=== PATIENT | female | born 1930 | race African-American/Black ===

== ENCOUNTER 2018-02-19 18:47 | Observation (INO) ==
--- NOTE | 2018-02-19 18:54 | Emergency Department Note ---
START Narrative - START START: 87 year old female presents to the ED via EMS for altered mental status. Patient is currently alert now. I will order an EKg and this patient will be seen by night team (Franc/Brennon).
[2018-02-19] MEDS ORDERED: Ondansetron 4 MG/2 ML VIAL IVP ONE (19:24)
--- NOTE | 2018-02-19 19:31 | Emergency Department Note ---
Disposition Clinical Impression: Pneumonia, Weakness Disposition: Admitted As Inpatient Condition: Fair Time of Disposition: 22:00 General Adult HPI - General Chief complaint: ED Altered Mental Status Stated complaint: generalized weakness Time Seen by Provider: 02/19/18 18:52 Source: patient, family, EMS Mode of arrival: EMS Limitations: no limitations Nursing Notes Reviewed: Yes Vital Signs Reviewed: Yes - History of Present Illness HPI Narrative: Patient is an 87-year-old female with a past medical history of dementia, hypertension, hyperlipidemia, and fibromyalgia presents to the emergency Department by squad for evaluation of drowsiness. Patient was at home with her son. Son states that the patient typically sleeps most the time throughout the day on the couch. States that she developed a nonproductive cough earlier today and is concerned so they called her PCP in which they recommended Robitussin. He states that when he gave the patient Robitussin she seemed to be more drowsy than usual must talkative. States this concerned him so he brought her in for evaluation. The patient states that she mainly feels nauseous and generally weak otherwise denies any other complaints such as headache, numbness, tingling, focal weakness, chest pain, shortness of breath, abdominal pain, diarrhea, dysuria, rash or lower extremity pain or swelling. She did have one episode of nausea and vomiting that occurred after taking the [id number] Robitussin. Nonbloody nonbilious. Pain Scale: 0 - Related Data Home Medications Medication Instructions Recorded Confirmed Atorvastatin [Lipitor] 40 mg PO HS 09/20/15 09/20/15 Donepezil [Aricept] 10 mg PO HS 09/20/15 09/20/15 Losartan/HCTZ [Hyzaar 50-12.5 1 each PO DAILY 09/20/15 09/20/15 Tablet] Magnesium Oxide [Mgo] 400 mg PO DAILY 09/20/15 09/20/15 RX: Folic Acid 1 mg PO DAILY 09/20/15 09/20/15 RX: Methotrexate [Otrexup] 7.5 mg PO QWEEK 09/20/15 09/20/15 Previous Rx's Medication Instructions Recorded Albuterol Sulfate [Albuterol 1 puff IH Q4HR #1 inhaler 03/27/16 Inhaler] Benzonatate [Tessalon] 100 mg PO TID #20 capsule 03/27/16 RX: Azithromycin [Zithromax] 250 mg PO Q24H #6 tablet 03/27/16 HYDROcodone/Acet 5/325 mg [[place] 1 tab PO Q6H PRN #10 tab 06/11/16 5-325 mg] HYDROcodone/Acet 5/325 mg [[place] 0.5 - 1 tab PO Q6H PRN 2 Days #6 10/08/17 5-325 mg] tab RX: predniSONE [PredniSONE] 40 mg PO DAILY 10 Days #4 tablet 10/08/17 Allergies Allergy/AdvReac Type Severity Reaction Status Date / Time No Known Allergies Allergy Verified 06/11/16 11:20 All systems ED: reviewed and negative except as stated. Review of Systems: As Per [facility] Past Medical History - Past Medical History Attestation: Yes The following information was validated with the patient. Medical history: Reports: arthritis, dementia, fibromyalgia, hyperlipidemia, hypertension Psychiatric history: Reports: no psych history FAMILY PRACTICE DOCTOR history: Reports: no FAMILY PRACTICE DOCTOR history - Social History Smoking Status: Former smoker Smokeless Tobacco Status: No Alcohol use: Reports: none Drug use: Reports: none Physical Exam - General Limitations: no limitations General appearance: alert, in no apparent distress - Head Head exam: atraumatic, normocephalic, normal inspection - Eye Eye exam: Present: normal appearance, PERRL, EOMI, miosis - ENT ENT exam: normal exam, mucous membranes moist, TM's normal bilaterally - Neck Neck exam: Present: normal inspection, full ROM, trachea midline. Absent: tenderness - Chest Chest inspection: Present: normal inspection, symmetric chest wall rise. Absent: tenderness - Respiratory Respiratory exam: Present: normal lung sounds bilaterally. Absent: respiratory distress, wheezes - Cardiovascular Cardiovascular exam: Present: regular rate, normal rhythm, normal heart sounds, +S1, +S2 - Abdominal Exam Abdominal exam: Present: soft, Non-Tender, normal bowel sounds - Extremities Exam Extremities exam: Present: normal inspection, full ROM, normal capillary refill. Absent: tenderness, pedal edema - Back Exam Back exam: Present: normal inspection, full ROM. Absent: tenderness, CVA tenderness (R), CVA tenderness (L) - Neurological Exam Neurological exam: Present: alert, oriented X3, CN II-XII intact. Absent: motor sensory deficit - Expanded Neurological Exam Patient oriented to: Present: person, place, time Speech: Present: fluid speech Cranial nerves: EOM function (II, III, IV, ): Normal, facial sensation (V): Normal, facial palsy (VII): Normal, gag reflex (IX): Normal, spinal accessory function (XI): Normal, tongue deviation (XII): Normal Cerebellar function: finger to nose: Normal, heel to goodwin: Normal Motor strength - LUE: 5/5 Motor strength - RUE: 5/5 Motor strength - LLE: 5/5 Motor strength - RLE: 5/5 Sensory exam upper extremity: light touch: Normal Sensory exam lower extremity: light touch: Normal Coma Scale Eye Opening: Spontaneous Coma Scale Motor Response: Obeys Commands Coma Scale Verbal Response: Oriented Coma Scale Total: 15 - Psychiatric Psychiatric exam: Present: normal affect, normal mood - Skin Skin exam: Present: warm, dry, intact Course Course Narrative: Patient's EKG does show new changes which include T-wave inversions in lead III and aVF. Given this change in the setting of weakness plan is times throughout the cardiac ideology as well as an infectious source for the patient's overall weakness. Patient does have miosis on exam and is laying in bed with her eyes clothes. Possible medication reaction from codeine. This may be medication side effect. Patient will receive a dose of Zofran for nausea. Otherwise she is in no acute distress at this time she will be updated with results we will discuss disposition upon return of lab work and imaging. - Reevaluation(s) Reevaluation #1: Discussed the patient's case with the hospitalist on-call, Dr. Vallecillo, he agrees to accept the patient for pneumonia. Discussed this findings with the patient which included chest x-ray showing a right lower lobe infiltrate in the setting of her cough and weakness patient was started on community-acquired coverage with ceftriaxone and azithromycin. She is admitted to the hospitalist for further evaluation and treatment. Patient agrees with this plan. Time: 22:00 Vital Signs Temperature 99.1 F 02/19/18 18:56 Pulse Rate 67 02/19/18 18:56 Respiratory Rate 19 18 18:56 Blood Pressure 182/55 18 18:56 O2 Sat by Pulse Oximetry 97 02/19/18 18:56 Temperature 99.1 F 02/19/18 18:56 Pulse Rate 72 02/19/18 21:00 Respiratory Rate 17 02/19/18 21:00 Blood Pressure 110/93 02/19/18 21:00 O2 Sat by Pulse Oximetry 97 02/19/18 21:00 Oxygen Delivery Oxygen Delivery Room Air Medical Decision Making - Medical Records Medical records reviewed: Yes I reviewed the patient's medical records. - Lab Data Lab results reviewed: Yes I reviewed the patient's lab results. Result diagrams: 02/19/18 19:52 02/19/18 19:52 Lab Results 02/19/18 02/19/18 02/19/18 Range/Units 19:52 19:52 20:10 WBC 8.9 (4.3-11.1) K/mcL RBC 3.50 L (3.82-4.97) M/mcL Hgb 10.9 L (11.5-15.4) g/dL Hct 31.8 L (35.3-44.9) % MCV 90.9 (83.0-100.0) fL MCH 31.1 (28.0-33.3) pg MCHC 34.3 (31.6-35.5) g/dL RDW 14.0 (11.5-14.5) % Plt Count 168 (140-400) K/mcL MPV 11.7 (9.4-12.4) fL Immature Gran % 0.1 (0-4) % Seg Neutrophils % 75.8 % Lymphocytes % 10.6 % Monocytes % 12.5 % Eosinophils % 0.6 % Basophils % 0.4 % Neutrophils # 6.8 (1.6-8.9) K/mcL Lymphocytes # 1.0 (0.6-4.6) K/mcL Monocytes # 1.1 (0.0-1.3) K/mcL Eosinophils # 0.1 (0.0-0.6) K/mcL Basophils # 0.0 (0.0-0.2) K/mcL Sodium 138 (136-145) mEq/L Potassium 4.1 (3.5-5.1) mEq/L Chloride 104 (98-107) mEq/L Carbon Dioxide 25 (23-29) mEq/L BUN 21 (8-23) mg/dL Creatinine 1.23 H (0.60-1.20) mg/dL Est GFR ( Amer) 50 L (> 60) Est GFR (Non-Af Amer) 41 L (> 60) BUN/Creatinine Ratio 17 (6-26) Glucose 148 H (70-105) mg/dL Calculated Osmolality 292 (280-300) Calcium 8.6 (8.6-10.3) mg/dL Total Bilirubin 0.4 (0.3-1.0) mg/dL AST 21 (13-39) Units/L ALT 15 (7-52) Units/L Alkaline Phosphatase 80 (34-104) Units/L Troponin I < 0.03 (< 0.04) ng/mL Serum Total Protein 6.1 L (6.4-8.9) g/dL Albumin 3.4 L (3.5-5.7) g/dL Globulin 2.7 (2.4-3.5) g/dL Albumin/Globulin Ratio 1.3 (1.1-2.2) TSH 2.588 (0.340-5.600) mcIU/mL Urine Color Yellow (Yellow) Urine Clarity Cloudy A (Clear) Urine pH 6.0 (5.0-8.0) pH Units Ur Specific [place] 1.009 L (1.010-1.025) Urine Protein Negative (Neg-Trace) mg/dL Urine Glucose (UA) Normal (Normal) mg/dL Urine Ketones Negative (Negative) mg/dL Urine Blood Negative (Negative) Urine Nitrite Negative (Negative) Urine Bilirubin Negative (Negative) Urine Urobilinogen Normal (Normal) mg/dL Ur Leukocyte Esterase Moderate H (Negative) Urine Microscopic RBC 0-3 (0-3) per hpf Urine Microscopic WBC 15-30 H (0-3) per hpf Ur Squamous Epith Cells Many H (None-Few) per lpf Urine Bacteria Moderate H (None-Few) per hpf Hyaline Casts None Seen (None-Few) per lpf Urine Yeast Few H (None Seen) per hpf Ur Culture Indicated? NO. A (NO) - Radiology Data Radiology results reviewed: Yes I reviewed the patient's radiology results. Chest X-Ray 02/19/18 19:24 IMPRESSION: Mild infiltrate at the right lung base superimposed on chronic changes in the right middle lobe. D/ / Chastity Marcos MD / Chastity Marcos MD Interpreting Provider: Chastity Marcos MD - EKG Data EKG #1 EKG attestation: Yes I reviewed and interpreted this EKG. EKG results narrative: EKG done at 19:04 shows sinus rhythm at a rate of 67 bpm. Normal axis. Intervals within normal limits. New T-wave inversions in lead III and aVF. Isolated PVC. Otherwise unchanged from EKG done on September 192015. Attestation Statement - Attestation Attestation: Dr. Bruner note: Patient seen in conjunction with resident Dr. Willett. Please see his charting for complete documentation. I spent [id number] time with the patient and I agree with patient's treatment in this position. Patient has been more weak and fatigued and less responsive over the last couple days. No hypoxia or tachypnea. Right-sided pneumonia noted. Antibiotics indicated. Patient based on her presentation and age and comorbidities would not likely be successful : Outpatient management. X-ray results noted. Blood work reviewed. Admitted and stabilized improved condition.
[2018-02-19 20:04] LABS: Basophils % 0.4 %; Eosinophils # 0.1 K/mcL (0.0-0.6); Eosinophils % 0.6 %; Hematocrit 31.8 % (35.3-44.9); Hemoglobin 10.9 g/dL (11.5-15.4); Immature Granulocytes % 0.1 % (0-4); Lymphocytes % 10.6 %; Mean Corpuscular HGB Conc 34.3 g/dL (31.6-35.5); Mean Corpuscular Hemoglobin 31.1 pg (28.0-33.3); Mean Corpuscular Volume 90.9 fL (83.0-100.0); Mean Platelet Volume 11.7 fL (9.4-12.4); Monocytes # 1.1 K/mcL (0.0-1.3); Monocytes % 12.5 %; Neutrophils # 6.8 K/mcL (1.6-8.9); Platelet Count 168 K/mcL (140-400); Segmented Neutrophils % 75.8 %
[2018-02-19 20:24] LABS: Alanine Aminotransferase 15 Units/L (7-52); Albumin 3.4 g/dL (3.5-5.7); Albumin/Globulin Ratio 1.3 (1.1-2.2); Alkaline Phosphatase 80 Units/L (34-104); Aspartate Amino Transferase 21 Units/L (13-39); BUN/Creatinine Ratio 17 (6-26); Bilirubin,Total 0.4 mg/dL (0.3-1.0); Blood Urea Nitrogen 21 mg/dL (8-23); Calcium 8.6 mg/dL (8.6-10.3); Carbon Dioxide 25 mEq/L (23-29); Chloride 104 mEq/L (98-107); Globulin 2.7 g/dL (2.4-3.5); Glucose 148 mg/dL (70-105); Osmolality,Calculated 292 (280-300); Potassium 4.1 mEq/L (3.5-5.1); Sodium 138 mEq/L (136-145); Total Protein 6.1 g/dL (6.4-8.9); Troponin I < 0.03 ng/mL (< 0.04); eGFR For Non-African Americans 41 (> 60)
[2018-02-19 20:36] LABS: Bilirubin,Urine Negative (Negative); Blood,Urine Negative (Negative); Clarity,Urine Cloudy (Clear); Color,Urine Yellow (Yellow); Glucose,Urine (UA) Normal (Normal); Ketones,Urine Negative (Negative); Leukocyte Esterase,Urine Moderate (Negative); Nitrite,Urine Negative (Negative); Protein,Urine Negative (Neg-Trace); Specific Gravity,Urine 1.009 (1.010-1.025); Urobilinogen,Urine Normal (Normal)
[2018-02-19 20:38] LABS: Thyroid Stimulating Hormone 2.588 mcIU/mL (0.340-5.600)
[2018-02-19 20:38] LABS: Bacteria,Urine Moderate per hpf (None-Few); Hyaline Casts,Urine None Seen per lpf (None-Few); Squamous Epithelial Cell,Urine Many per lpf (None-Few); WBC,Urine 15-30 per hpf (0-3)
[2018-02-19 21:04] LABS: RBC,Urine 0-3 per hpf (0-3)
[2018-02-19 21:05] LABS: Yeast,Urine Few per hpf (None Seen)
[2018-02-19] MEDS ORDERED: Azithromycin 500 MG in D5% in Water 250 ML IVPB ONE ×2 (21:13→23:00)
[2018-02-19] MEDS: cefTRIAXone 1,000 MG in Water for inj. (sterile) 20 ML 10 ML IVP SCH (22:32)
[2018-02-20] MEDS ORDERED: Ringers Solution, Lactated 1,000 ML IVC SCH (01:00)
--- NOTE | 2018-02-20 01:00 | Internal Med History&Physical ---
Date of Encounter: 02/20/18 Time of Encounter: 00:55 Internal Medicine - H&P: HPI Chief complaint: Weakness Admitted From: Home Plans for Post Hospital Care: Home History of present illness: Yari Batista is an 87-year-old woman with dementia, hypertension and rheumatoid arthritis (presumed based on her records showing folic acid, prednisone and methotrexate) who lives with her son at home brought in due to weakness and fatigue. It is reported that the patient typically sleeps most of the time throughout the day on the couch as her norm. She developed nonproductive cough earlier and was recommended Robitussin by their PCP. After she took it she became more drowsy than usual and this concerned him so he brought her in for evaluation. In the ER she reported feeling nauseated and generally weak but otherwise had no complaints. Lab work was grossly unrevealing. Chest x-ray done gave him concern for pneumonia and was given ceftriaxone and azithromycin however on my review she has a persistent chronic right base opacity which seems to stem from underlying granulomatous disease and is not a new infiltrate. On my assessment she is unable to tell me why she is here, notably confused and searching for a reason. She response every other question appropriately however. She denies headache, chest pain, difficulty breathing, abdominal pain, nausea, vomiting and diarrhea. Past Med Surg Social Fam HX - Past Medical History Medical history: arthritis, dementia, fibromyalgia, hyperlipidemia, hypertension Additional medical history: poor historian Psychiatric history: no psych history - Past Surgical History Additional surgical history: back surgery. J LUIS CARPAL TUNNEL - Social History Smoking Status: Former smoker Smokeless Tobacco Status: No Alcohol use: none Drug use: none Internal Medicine - H&P: Meds Atorvastatin [Lipitor] 40 mg PO HS 09/20/15 [History] Donepezil [Aricept] 10 mg PO HS 09/20/15 [History] Folic Acid 1 mg PO DAILY 09/20/15 [History] Losartan/HCTZ [Hyzaar 50-12.5 Tablet] 1 each PO DAILY 09/20/15 [History] Magnesium Oxide [Mgo] 400 mg PO DAILY 09/20/15 [History] Methotrexate [Otrexup] 7.5 mg PO QWEEK 09/20/15 [History] Albuterol Sulfate [Albuterol Inhaler] 1 puff IH Q4HR #1 inhaler 03/27/16 [Rx] Azithromycin [Zithromax] 250 mg PO Q24H #6 tablet 03/27/16 [Rx] Benzonatate [Tessalon] 100 mg PO TID #20 capsule 03/27/16 [Rx] HYDROcodone/Acet 5/325 mg [[place] 5-325 mg] 1 tab PO Q6H PRN #10 tab 06/11/16 [Rx] HYDROcodone/Acet 5/325 mg [[place] 5-325 mg] 0.5 - 1 tab PO Q6H PRN 2 Days #6 tab 10/08/17 [Rx] predniSONE [PredniSONE] 40 mg PO DAILY 10 Days #4 tablet 10/08/17 [Rx] Allergy/AdvReac Type Severity Reaction Status Date / Time No Known Allergies Allergy Verified 06/11/16 11:20 All Systems PM: A 10-system review of systems was performed and is negative for pertinent find ings except as documented above in the HPI. Family History reviewed and noncontributory. - Constitutional Vitals: Temp Pulse Resp BP Pulse Ox 99.3 F 72 15 157/73 96 02/19/18 23:13 02/19/18 23:13 02/19/18 23:13 02/19/18 23:13 02/19/18 23:13 Exam: Vitals: Reviewed General: Well-developed and well-appearing elderly female lying comfortably in bed in no acute distress. Skin: Warm and supple. HEENT: Moist mucous membranes. No conjunctivae pallor. Neck: No lymphadenopathy. No JVD. No carotid bruits. No palpable thyroid. Chest: Normal thoracic expansion. Normal breath sounds. Clear to auscultation. Heart: Normal S1 & S2; rhythmic. No rubs or murmurs. Abdomen: Non-distended, soft and non-tender to palpation. No peritoneal reaction. Extremities: No clubbing, cyanosis or edema. No calf tenderness. Normal distal pulses. Neurological: Awake, alert and oriented to person, place and time. No focal deficits. Psych: Affect appropriate. Internal Med - H&P Results - Labs CBC & Chem 7: 02/19/18 19:52 02/19/18 19:52 Labs: Short CBC 02/19/18 Range/Units 19:52 WBC 8.9 (4.3-11.1) K/mcL Hgb 10.9 L (11.5-15.4) g/dL Hct 31.8 L (35.3-44.9) % Plt Count 168 (140-400) K/mcL Neutrophils # 6.8 (1.6-8.9) K/mcL BMP 02/19/18 19:52 Sodium 138 Potassium 4.1 Chloride 104 Carbon Dioxide 25 BUN 21 Creatinine 1.23 H Glucose 148 H Calcium 8.6 Cardiac Enzymes 02/19/18 Range/Units 19:52 Troponin I < 0.03 (< 0.04) ng/mL Liver Function 02/19/18 Range/Units 19:52 Total Bilirubin 0.4 (0.3-1.0) mg/dL AST 21 (13-39) Units/L ALT 15 (7-52) Units/L Alkaline Phosphatase 80 (34-104) Units/L Albumin 3.4 L (3.5-5.7) g/dL Urine 02/19/18 Range/Units 20:10 Urine Color Yellow (Yellow) Urine Clarity Cloudy A (Clear) Urine pH 6.0 (5.0-8.0) pH Units Ur Specific [place] 1.009 L (1.010-1.025) Urine Protein Negative (Neg-Trace) mg/dL Urine Glucose (UA) Normal (Normal) mg/dL - Impressions ITS Impressions Chest X-Ray 02/19/18 19:24 IMPRESSION: Mild infiltrate at the right lung base superimposed on chronic changes in the right middle lobe. D/ / Chastity Marcos MD / Chastity Marcos MD Interpreting Provider: Chastity Marcos MD - Assessment and plan (1) Weakness Current Visit: Yes Status: Acute Assessment and plan: The patient's drowsiness and increased fatigue may be attributable to taking Robitussin which can be sedating. At this time there is no clinical or microbiologic sign of UTI, clinically has no respiratory symptoms or radiologic findings concerning for pneumonia or systemic signs of illness. Will not continue the antimicrobials started in the ER. Her lab work is grossly unremarkable. Will place her on fluids for maintenance and observe her overnight to ensure stability and normalcy of her mental status. (2) HTN (hypertension) Current Visit: Yes Status: Acute Assessment and plan: Well controlled. Will resume home oral agents. Qualifiers: Hypertension type: essential hypertension Qualified Code(s): I10 - Essential (primary) hypertension (3) DVT prophylaxis Current Visit: Yes Status: Acute Assessment and plan: SubQ heparin - Time Spent With Patient Total time spent is greater than 50% in coordination of care (as documented) at patient's floor/unit and/or counseling patient: Greater than 35 minutes
[2018-02-20 05:09] LABS: % Iron Saturation 8 % (15-50); Iron 22 mcg/dL (50-170); Transferrin 185 mg/dL (203-362)
[2018-02-20] MEDS: *HR* Heparin 5,000 UNIT/ML VIAL SQ SCH ×2 (05:09→16:51)
--- NOTE | 2018-02-20 09:07 | Electrocardiograph Report ---
[place] [facility] Test Date: 2018-02-19 Pat Name: Yari Batista Department: [id number] Room: 2A43 Gender: F Welder 2[address] Shift: : 1930 Requested By: Amber Fernandez Order Number: [id number] Reading MD: Regine Castañeda Measurements Intervals [place] Rate: 67 P: 30 ME: 191 QRS: 32 QRSD: 85 T: -30 QT: 410 QTc: 433 Interpretive Statements Sinus rhythm Ventricular premature complex Left ventricular hypertrophy Borderline T abnormalities, diffuse leads Electronically Signed On 02-20-2018 9:06:05 EST by Regine Castañeda
[2018-02-20] MEDS: Folic Acid 1 MG TABLET PO SCH (09:42)
[2018-02-20] MEDS: Magnesium Oxide 400 MG TABLET PO SCH (09:42)
[2018-02-20] MEDS: Losartan/HCTZ 50-12.5 TABLET PO SCH (09:42)
[2018-02-20] MEDS ORDERED: Azithromycin 250 MG TABLET PO SCH (17:00)
--- NOTE | 2018-02-20 18:54 | Event Note ---
Date of Encounter: 02/20/18 Time of Encounter: 11:00 Patient evaluated by nocturnalist earlier this morning and also by myself. Patient presents with generalized weakness found to have right middle lobe pneumonia. Will continue IV azithromycin and IV ceftriaxone for Commit acquired pneumonia.
[2018-02-20] MEDS: cefTRIAXone 1,000 MG in Water for inj. (sterile) 20 ML 10 ML IVP SCH (20:04)
[2018-02-21] MEDS: *HR* Heparin 5,000 UNIT/ML VIAL SQ SCH (05:07)
[2018-02-21] MEDS: Folic Acid 1 MG TABLET PO SCH (08:34)
[2018-02-21] MEDS: Magnesium Oxide 400 MG TABLET PO SCH (08:34)
[2018-02-21] MEDS: Losartan/HCTZ 50-12.5 TABLET PO SCH (08:34)
--- NOTE | 2018-02-21 09:22 | Internal Med Progress Note ---
Hospitalist Progress Note - Encounter Date of Encounter: 02/21/18 - Subjective Interval History: Patient presented with generalized weakness and fatigue found to have concerns for right middle lobe pneumonia on imaging. - Exam Vitals: Temp Pulse Resp BP Pulse Ox 99.4 F 62 18 134/73 95 02/21/18 06:50 02/21/18 06:50 02/21/18 06:50 02/21/18 06:50 02/21/18 08:45 - Assessment and Plan (1) Pneumonia Current Visit: Yes Status: Acute Assessment and Plan: Imaging with suspicion for right middle lobe infiltrate Respiratory panel pending Continue day 3 of IV azithromycin and IV ceftriaxone (2) Weakness Current Visit: Yes Status: Acute Assessment and Plan: Suspect secondary to kidney acquired pneumonia Management as above Will consult PT/OT for evaluation and appreciate recommendations (3) HTN (hypertension) Current Visit: Yes Status: Acute Assessment and Plan: Continue home dose of losartan/hydrochlorothiazide (4) HLD (hyperlipidemia) Current Visit: Yes Status: Acute Assessment and Plan: Continue statin (5) Dementia Current Visit: Yes Status: Acute Assessment and Plan: Continue home dose of Aricept DVT Prophylaxis: Heparin subcutaneous - Time Spent with Patient Total time spent is greater than 50% in coordination of care (as documented) at patient's floor/unit and/or counseling patient: Internal Medicine: Result - Labs CBC & Chem 7: 02/19/18 19:52 02/19/18 19:52 Consult Discharge Plan - Plan Referrals: Jesus Merrill DO [Primary Care Provider] - (1) Pneumonia Qualifiers: Pneumonia type: due to unspecified organism Laterality: right Lung location: lower lobe of lung Qualified Code(s): J18.1 - Lobar pneumonia, unspecified organism (3) HTN (hypertension) Qualifiers: Hypertension type: essential hypertension Qualified Code(s): I10 - Essential (primary) hypertension (4) HLD (hyperlipidemia) Qualifiers: Hyperlipidemia type: unspecified Qualified Code(s): E78.5 - Hyperlipidemia, unspecified (5) Dementia Qualifiers: Qualified Code(s): F03.90 - Unspecified dementia without behavioral disturbance
[2018-02-21 10:19] LABS: Basophils # 0.1 K/mcL (0.0-0.2); Basophils % 0.7 %; Eosinophils # 0.2 K/mcL (0.0-0.6); Eosinophils % 2.3 %; Hematocrit 32.3 % (35.3-44.9); Hemoglobin 10.6 g/dL (11.5-15.4); Immature Granulocytes % 0.3 % (0-4); Lymphocytes # 1.9 K/mcL (0.6-4.6); Lymphocytes % 25.1 %; Mean Corpuscular HGB Conc 32.8 g/dL (31.6-35.5); Mean Corpuscular Hemoglobin 30.6 pg (28.0-33.3); Mean Corpuscular Volume 93.4 fL (83.0-100.0); Mean Platelet Volume 11.8 fL (9.4-12.4); Neutrophils # 4.3 K/mcL (1.6-8.9); Platelet Count 164 K/mcL (140-400); Red Blood Count 3.46 M/mcL (3.82-4.97); Red Cell Distribution Width 14.2 % (11.5-14.5); Segmented Neutrophils % 57.6 %
[2018-02-21 10:28] LABS: Calcium 8.8 mg/dL (8.6-10.3); Potassium 3.7 mEq/L (3.5-5.1)
[2018-02-21 10:35] LABS: Adenovirus Not Detected (Not Detect); Bordetella Pertussis Not Detected (Not Detect); Chlamydophila pneumoniae Not Detected (Not Detect); Coronavirus 229E Not Detected (Not Detect); Coronavirus HKU1 Not Detected (Not Detect); Coronavirus NL63 Not Detected (Not Detect); Coronavirus OC43 Not Detected (Not Detect); Human Metapneumovirus Not Detected (Not Detect); Human Rhinovirus/Enterovirus DETECTED (Not Detect); Influenza A Subtype 2009 H1 Not Detected (Not Detect); Influenza A Untypeable Not Detected (Not Detect); Influenza B Not Detected (Not Detect); Mycoplasma pneumoniae Not Detected (Not Detect); Parainfluenza Virus 1 Not Detected (Not Detect); Parainfluenza Virus 2 Not Detected (Not Detect); Parainfluenza Virus 3 Not Detected (Not Detect); Parainfluenza Virus 4 Not Detected (Not Detect); Respiratory Syncytial Virus Not Detected (Not Detect)
[2018-02-21 10:51] VITALS: BP 151/71
[2018-02-21] MEDS ORDERED: Cefdinir 300 MG CAPSULE PO SCH (12:30)
--- NOTE | 2018-02-21 14:26 | Discharge Summary ---
- NOTES TO OUTPATIENT PROVIDER Notes to Outpatient Provider: none Orders not resulted at time of discharge: Pending orders 02/19/18 21:00 Culture,Blood [BC] Stat Date of Encounter: 02/21/18 Time of Encounter: 11:00 - Discharge Diagnosis (1) Pneumonia Priority: Primary Status: Acute Qualifiers: Pneumonia type: due to unspecified organism Laterality: right Lung location: lower lobe of lung Qualified Code(s): J18.1 - Lobar pneumonia, unspecified organism (2) Weakness Priority: Primary Status: Acute (3) HTN (hypertension) Priority: Secondary Status: Acute Qualifiers: Hypertension type: essential hypertension Qualified Code(s): I10 - Essential (primary) hypertension (4) HLD (hyperlipidemia) Priority: Secondary Status: Acute Qualifiers: Hyperlipidemia type: unspecified Qualified Code(s): E78.5 - Hyperlipidemia, unspecified (5) Dementia Priority: Secondary Status: Acute Qualifiers: Qualified Code(s): F03.90 - Unspecified dementia without behavioral disturbance Hospital course: Patient is a 87-year-old female with past medical history significant for dementia, hypertension and rheumatoid arthritis (presumed based on her records showing folic acid, prednisone and methotrexate) who lives with her son at home brought in due to weakness and fatigue. In the ER Chest x-ray showed suspicion for pneumonia and was given ceftriaxone and azithromycin. She was admitted to medical surgical floor for management of community acquired pneumonia. During patients hospital stay her symptoms of generalized weakness improved with treatment on IV ceftriaxone and IV azithromycin. Patient will be discharged to complete a 5 day course of Omnicef. - Time Spent with Patient Total time spent providing and/or coordinating discharge services: Less than 30 minutes - Discharge Medications Prescriptions: Cefdinir [Omnicef] 300 mg PO BID 5 Days #10 capsule Home Medications: Atorvastatin [Lipitor] 40 mg PO HS 09/20/15 [History] Folic Acid 1 mg PO DAILY 09/20/15 [History] Magnesium Oxide [Mgo] 400 mg PO DAILY 09/20/15 [History] Methotrexate [Otrexup] 7.5 mg PO TU 09/20/15 [History] Donepezil [Aricept] 10 mg PO DAILY 02/20/18 [History] Losartan/Hydrochlorothiazide [Losartan-Hctz 100-25 mg Tab] 1 tab PO DAILY 02/20/18 [History] Cefdinir [Omnicef] 300 mg PO BID 5 Days #10 capsule 02/21/18 [Rx] Allergies/Adverse Reactions: Allergy/AdvReac Type Severity Reaction Status Date / Time No Known Allergies Allergy Verified 06/11/16 11:20 Date of admission: 02/19/18 22:16 Primary care physician: Jean Pierre Merrill DO - Constitutional Vitals: Temp Pulse Resp BP Pulse Ox 99.2 F 67 18 151/71 95 02/21/18 10:51 02/21/18 10:51 02/21/18 10:51 02/21/18 10:51 02/21/18 10:51 Exam: Gen.: Nonacute distress, alert and oriented 3 Skin: Normal color - Patient Status Disposition: Home, Self-Care Condition: Fair - Discharge Instructions Instructions: Pneumonia (DC) Follow Up With: Jesus Merrill DO [Primary Care Provider] - 03/07/18 9:30 am
== END 2018-02-21 15:12 | disposition home or self-care (01) ==
LOC: EMEROOARM 18:47 → 2ANU 18:47 → SUATTDRO 22:16 → 2ANU 23:03
PROVIDERS: ADMIT Internal Medicine; ATTEND Hospitalist